=== PATIENT | female | born 1955 | race Caucasian/White ===

== ENCOUNTER → 2017-10-27 | Outpatient (CLI) | payer BC ==
[~2017-10-27] MED LIST: CEPHALEXIN500 M1 PO; PRILOSEC 20MG20 MG PO; SIMVASTATIN40 MG PO
== END ==
LOC: MC.RAD 08:04
DX: Z12.31 Encounter for screening mammogram for malignant neoplasm of breast (principal)

== ENCOUNTER → 2018-01-31 | Outpatient (CLI) | payer BC | LOC: COL.RAD 15:50 | DX: M79.672 Pain in left foot (principal) ==

== ENCOUNTER → 2018-12-19 | Outpatient (CLI) | payer BC | LOC: MC.RAD 10:34 | DX: Z12.31 Encounter for screening mammogram for malignant neoplasm of breast (principal) ==

== ENCOUNTER → 2020-07-31 | Outpatient (CLI) | payer BC | LOC: MC.RAD 13:00 | DX: Z12.31 Encounter for screening mammogram for malignant neoplasm of breast (principal) ==